=== PATIENT | male | born 1945 | race Caucasian/White ===

== ENCOUNTER 2017-08-15 06:58 | Emergency (ER) | payer OTHER, MEDICARE ==
[2017-08-15 07:06] VITALS: BP 166/97; PULSE 81; TEMP 97.5; BMI 23.8
--- NOTE | 2017-08-15 08:01 | PDOC ---
History of Present Illness - General Chief Complaint: Chest Pain Stated Complaint: L CHEST PRESSURE Time Seen by Provider: 08/15/17 07:11 History Source: Patient (Patient walked in complaining of chest pressure for few days , some how increased with motion and deep breathing) Exam Limitations: No Limitations - History of Present Illness Timing/Duration: unsure, getting worse, intermittent Severity: moderate Modifying Factors: improves with: medication Associated Symptoms: reports: denies symptoms Past History - Travel Traveled outside of the country in the last 30 days: No Close contact w/someone who was outside of country & ill: No - Past Medical History Allergies/Adverse Reactions: Allergies Allergy/AdvReac Type Severity Reaction Status Date / Time house dust Allergy Mild Verified 03/26/12 10:39 Stock Ragweed Pollen Mixture Allergy Mild Verified 03/26/12 10:39 FEATHERS Allergy Mild Uncoded 03/26/12 10:39 Stock Ragweed Vlad Allergy Mild Uncoded 03/26/12 10:39 *RETIRED-05/20/12 NKDA Allergy Uncoded 03/26/12 10:39 Home Medications: Ambulatory Orders Fluticasone Prop 0.05% Nasal [Flonase] 1 spray NS PRN 03/26/12 Losartan/Hydrochlorothiazide [Hyzaar 100-12.5 Tablet] PO DAILY 03/26/12 Montelukast Na [Singulair] 10 mg PO PRN 03/26/12 Tadalafil [Cialis] 10 mg PO ASDIR #10 tablet 09/17/14 Ibuprofen 600 mg PO BID PRN #20 tablet 08/15/17 Ibuprofen [Motrin -] 400 mg PO TID #21 tablet 08/15/17 Valacyclovir HCl [Valtrex] 1,000 mg PO TID #20 tablet 08/15/17 Valacyclovir HCl [Valtrex] 1,000 mg PO TID #20 tablet 08/15/17 Anemia: No Asthma: No Cancer: No Cardiac Disorders: No CVA: No COPD: No CHF: No Dementia: No Diabetes: No GI Disorders: No Disorders: No HTN: Yes Hypercholesterolemia: Yes Liver Disease: No Seizures: No Thyroid Disease: No - Surgical History Abdominal Surgery: Yes (RIGHT INGUINAL HERNIA REPAIRED) Cardiac Surgery: No Cholecystectomy: No Lung Surgery: No Neurologic Surgery: No Orthopedic Surgery: Yes (BILATERAL KNEE ARTHROSCOPIC SURGERY) - Suicide/Smoking/Psychosocial Hx Smoking History: Never smoked Have you smoked in the past 12 months: No Number of Cigarettes Smoked Daily: 0 Information on smoking cessation initiated: No Hx Alcohol Use: No Drug/Substance Use Hx: No Substance Use Type: Alcohol Hx Substance Use Treatment: No Review of Systems - Review of Systems Able to Perform ROS?: Yes Is the patient limited French proficient: Yes Constitutional: No: Symptoms Reported, See HPI, Chills, Diaphoresis, Fever, Loss of Appetite, Malaise, Night Sweats, Weakness, Weight Stable, Unintentional Wgt. Loss, Unexplained wgt Loss, Other HEENTM: No: Symptoms Reported, See HPI, Eye Pain, Blurred Vision, Tearing, Recent change in vision, Double Vision, Cataracts, Ear Pain, Ocular Prothesis, Ear Discharge, Nose Pain, Nose Congestion, Tinnitus, Nose Bleeding, Hearing Loss , Throat Pain, Throat Swelling, Mouth Pain, Dental Problems, Difficulty Swallowing, Mouth Swelling, Other Respiratory: No: Symptoms reported, See HPI, Cough, Orthopnea, Shortness of Breath, SOB with Exertion, SOB at Rest, Stridor, Wheezing, Productive cough, Hemoptysis, Other Cardiac (ROS): Yes: Chest Pain ABD/GI: No: Symptoms Reported, See HPI, Abdominal Distended, Abd. Pain w/ defecation, Blood Streaked Bowels, Constipated, Diarrhea, Difficulty Swallowing , Nausea, Poor Appetite, Poor Fluid Intake, Rectal Bleeding, Vomiting, Indigestion, Abdominal cramping, Tarry Stools, Other Musculoskeletal: Yes: See HPI Integumentary: No: Symptoms Reported, See HPI, Bruising, Change in Color, Change in Hair/Nails, Dryness, Erythema, Flushing, Lesions, Lumps, Pallor, Pruritus, Rash, Sweating, Other Neurological: No: Symptoms reported, See HPI, Headache, Numbness, Paresthesia, Pre-Existing Deficit, Seizure, Tingling, Tremors, Weakness, Unsteady Gait, Ataxia, Dizziness, Other *Physical Exam - Vital Signs Last Vital Signs Temp Pulse Resp BP Pulse Ox 97.5 F L 81 14 166/97 99 08/15/17 07:01 08/15/17 07:01 08/15/17 07:01 08/15/17 07:01 08/15/17 07:01 - Physical Exam General Appearance: Yes: Nourished, Appropriately Dressed, Apparent Distress, Mild Distress HEENT: positive: VERONICA, Normal ENT Inspection Neck: positive: Trachea midline, Supple Respiratory/Chest: positive: Lungs Clear, Normal Breath Sounds, Other (Skin rash as described below) Gastrointestinal/Abdominal: negative: Normal Bowel Sounds, Tender, Flat, Soft, Organomegaly, Pulsatile Mass, Increased Bowel Sounds, Decreased BS, Protuberent , Distended, Guarding, Rebound, Tenderness, Hernia, Mass, Hepatomegaly, Spleenomegaly, Other Lymphatic: negative: Adenopathy, Tenderness, Other Musculoskeletal: positive: Normal Inspection Extremity: positive: Normal Capillary Refill Integumentary: positive: Normal Color, Other (Left sided chest wall posteriorly and lower down left laterally, sparing mid line hyperemic mostly pappular no vesicles yet ) Neurologic: positive: Fully Oriented, Alert, Normal Mood/Affect ED Treatment Course - LABORATORY CBC & Chemistry Diagram: 08/15/17 07:52 08/15/17 07:52 *DC/Admit/Observation/Transfer Diagnosis at time of Disposition: Shingles Qualifiers: Herpes zoster complications: unspecified herpes zoster complication Qualified Code(s): B02.8 - Zoster with other complications Chest pain Qualifiers: Chest pain type: other chest pain Qualified Code(s): R07.89 - Other chest pain - Discharge Dispostion Disposition: HOME Condition at time of disposition: Good Admit: No - Prescriptions Prescriptions: Ibuprofen 600 mg PO BID PRN #20 tablet PRN Reason: Pain Ibuprofen [Motrin -] 400 mg PO TID #21 tablet Valacyclovir HCl [Valtrex] 1,000 mg PO TID #20 tablet Valacyclovir HCl [Valtrex] 1,000 mg PO TID #20 tablet - Referrals Referrals: Jacob Ann MD [Primary Care Provider] - - Patient Instructions Printed Discharge Instructions: DI for Shingles - Post Discharge Activity
[2017-08-15 08:20] LABS: ALBUMIN 4.2 g/dl (3.5-5.0); ALK PHOS 67 U/L (32-92); ANION GAP 4 (8-16); BILIRUBIN,TOTAL 1.3 mg/dl (0.2-1.0); CALCIUM 9.2 mg/dl (8.4-10.2); CO2 31 mmol/L (22-28); CREATININE 0.8 mg/dl (0.6-1.3); GLUCOSE,RANDOM 113 mg/dl (74-106); SGOT/AST 25 U/L (10-42); SGPT/ALT 21 U/L (10-40); TOT PROT 6.2 g/dl (6.4-8.3)
[2017-08-15 08:29] LABS: BASOPHIL 0.7 % (0-2.0); EOSINOPHIL 2.4 % (0-4.5); MCH 30.6 pg (25.7-33.7); MCHC 34.6 g/dl (32.0-35.9); MEAN CELL VOLUME 88.4 fl (80-96); MEAN PLT VOLUME 9.2 fl (7.5-11.1); PLATELET COUNT 166 K/MM3 (134-434); RDW 12.7 % (11.9-15.9); WHITE BLOOD COUNT 6.2 K/mm3 (4.0-10.8)
--- NOTE | 2017-08-15 18:53 | EKG ---
Test Reason : Blood Pressure : / mmHG Vent. Rate : 074 BPM Atrial Rate : 074 BPM P-R Int : 170 ms QRS Dur : 096 ms QT Int : 398 ms P-R-T Axes : 061 058 043 degrees QTc Int : 441 ms NORMAL SINUS RHYTHM NORMAL ECG NO PREVIOUS ECGS AVAILABLE Confirmed by GLENNA LOPEZ MD ([id number]) on 08/15/2017 6:53:03 PM Referred By: Viraj PHAN Confirmed By:GLENNA LOPEZ MD
== END 2017-08-15 09:26 | disposition home or self-care (01) ==
LOC: FER 06:58
DX: B02.8 Zoster with other complications (principal); R07.89 Other chest pain; E78.00 Pure hypercholesterolemia, unspecified; I10 Essential (primary) hypertension
CPT/HCPCS: 36415; 71020-TC; 80053; 84484; 85025; 93005; 99284-25